=== PATIENT | female | born 1985 | race African-American/Black ===

== ENCOUNTER 2020-08-06 14:53 | Emergency (ER) | payer OTHER ==
[2020-08-06 15:25] VITALS: TEMP 98.5; BMI 34.3
[2020-08-06] MEDS ORDERED: SODIUM PHOSPHATE/NA BIPHOS 133 ML ENEMA PR ONE (16:53)
[2020-08-06 17:41] LABS: BASO % 0.5 % (0-2.0); EOS % 0.5 % (0-4.5); HEMATOCRIT 39.2 % (32.4-45.2); LYMPH % 32.4 % (8-40); MCH 30.4 pg (25.7-33.7); MCHC 33.1 g/dl (32.0-36.0); MEAN PLT VOLUME 8.8 fl (7.5-11.1); MONO % 6.5 % (3.8-10.2); NEUT % 60.1 % (42.8-82.8); PLATELET COUNT 184 K/MM3 (134-434); RBC 4.26 M/mm3 (3.60-5.2); RDW 13.5 % (11.6-15.6)
[2020-08-06 17:54] LABS: HCG,QUALITATIVE URINE Negative
[2020-08-06 18:14] LABS: POTASSIUM 4.2 mmol/L (3.5-5.1)
[2020-08-06 18:16] LABS: CALCIUM 9.7 mg/dL (8.5-10.1)
[2020-08-06 18:17] LABS: ALBUMIN 4.3 g/dl (3.4-5.0); BLOOD UREA NITROGEN 10.8 mg/dL (7-18)
[2020-08-06 18:21] LABS: EPI CELLS >36 /uL (0-25.1); HYALINE CASTS 1 /uL (0-3.1); PH,URINE 5.5 (5.0-8.0); URINE APPEARANCE CLOUDY; URINE BACTERIA 1663 /uL (0-1359); URINE BILIRUBIN NEGATIVE (NEGATIVE); URINE COLOR ORANGE; URINE GLUCOSE (UA) NEGATIVE (NEGATIVE); URINE KETONE TRACE (NEGATIVE); URINE LEUK ESTERASE 1+ (NEGATIVE); URINE NITRITE NEGATIVE (NEGATIVE); URINE PROTEIN 1+ (NEGATIVE); URINE RBC 398 /uL (0-23.9); URINE UROBILINOGEN 0.2 mg/dL (0.2-1.0); URINE WBC 202 /uL (0-25.8)
[2020-08-06 18:22] LABS: BILIRUBIN,TOTAL 0.4 mg/dL (0.2-1); TOT PROT 7.6 g/dl (6.4-8.2)
[2020-08-06] MEDS ORDERED: ACETAMINOPHEN 500 MG TABLET (FP) PO ONE (19:32)
[2020-08-06] MEDS ORDERED: ACETAMINOPHEN 325 MG TABLET (FP) ONE (19:37)
[2020-08-06 20:13] VITALS: BP 118/70; PULSE 75
== END 2020-08-06 20:12 | disposition home or self-care (01) ==
LOC: JER 14:53
DX: N30.01 Acute cystitis with hematuria (principal)
CPT/HCPCS: 36415; 74018-TC-FY; 74176-TC; 80053; 81003; 84703; 85025; 99284-25

== ENCOUNTER 2021-05-20 16:35 | Emergency (ER) | payer OTHER ==
[2021-05-20 16:42] VITALS: BP 130/78; PULSE 89; TEMP 98.2; BMI 34.3
[2021-05-20] MEDS ORDERED: ACETAMINOPHEN 500 MG TABLET (FP) PO ONE (17:56)
[2021-05-20] MEDS ORDERED: ACETAMINOPHEN 500 MG TABLET (FP) ONE (17:58)
== END 2021-05-20 20:40 | disposition home or self-care (01) ==
LOC: JERFT 16:35
DX: N63.10 Unspecified lump in the right breast, unspecified quadrant (principal)
CPT/HCPCS: 76642-TC-RT; 99284-25

== ENCOUNTER → 2021-06-04 | Day surgery (SDC) | payer OTHER | END | disposition home or self-care (01) | LOC: JRADUS-SUR 09:00 | PROVIDERS: ATTEND Surgery Surgical Oncology | PROC: 07953ZX Drainage of Right Axillary Lymphatic, Percutaneous Approach, Diagnostic (ICD-10-PCS; principal; 2021-06-04) | DX: D24.1 Benign neoplasm of right breast (principal); Z80.3 Family history of malignant neoplasm of breast | CPT/HCPCS: 19083; 19286; 77066-TC; 87899; A4648; G0279-TC ==

== ENCOUNTER 2021-06-16 22:53 | Inpatient (IN) | payer OTHER ==
[2021-06-17] MEDS ORDERED: morphine CARPU-JECT 4 MG/1 ML DISP.SYRIN IVPUSH ONE (00:46)
[2021-06-17] MEDS ORDERED: morphine SULFATE 4 MG/ML VIAL ONE (00:47)
[2021-06-17] MEDS ORDERED: SODIUM CHLORIDE 1,000 ML IV ONE (00:47)
[2021-06-17 01:14] LABS: BASO % 0.3 % (0-2.0); EOS % 0.3 % (0-4.5); HEMOGLOBIN 11.9 GM/dL (10.7-15.3); LYMPH % 12.6 % (8-40); MCH 29.6 pg (25.7-33.7); MCHC 33.1 g/dl (32.0-36.0); MEAN CELL VOLUME 89.2 fl (80-96); MEAN PLT VOLUME 7.5 fl (7.5-11.1); MONO % 9.6 % (3.8-10.2); NEUT % 77.2 % (42.8-82.8); PLATELET COUNT 269 10^3/uL (134-434); RBC 4.04 M/mm3 (3.60-5.2); RDW 13.3 % (11.6-15.6); WHITE BLOOD COUNT 14.4 K/mm3 (4.0-10.0)
[2021-06-17 01:26] LABS: CALCIUM 9.1 mg/dL (8.5-10.1)
[2021-06-17 01:27] LABS: ALBUMIN 3.2 g/dl (3.4-5.0); BLOOD UREA NITROGEN 7.6 mg/dL (7-18)
[2021-06-17 01:30] LABS: CREATININE 0.9 mg/dL (0.55-1.3)
[2021-06-17 01:31] LABS: BILIRUBIN,TOTAL 0.4 mg/dL (0.2-1)
[2021-06-17] MEDS ORDERED: VANCOMYCIN HCL 1,500 MG in DEXTROSE 5%-WATER - 500 ML IVPB ONE (01:39)
[2021-06-17 01:47] LABS: INR 1.55 (0.83-1.09); PROTHROMBIN TIME (PATIENT) 17.4 SEC (9.7-13.0)
[2021-06-17 01:50] LABS: ACTIVATED PTT 29.8 SECONDS (25.2-36.5)
[2021-06-17] MEDS ORDERED: VANCOMYCIN PREMIX 1.5 GM 1,500 MG/300 ML BAG IVPB ONE (02:44)
[2021-06-17] MEDS ORDERED: CLINDAMYCIN 900 MG PREMIX IVPB 900 MG/50 ML BAG IVPB ONE (04:15)
[2021-06-17] MEDS ORDERED: ONDANSETRON 4 MG/2 ML VIAL IVPUSH PRN (06:13)
[2021-06-17] MEDS: SODIUM CHLORIDE 1,000 ML IV SCH (07:26)
[2021-06-17] MEDS ORDERED: ONDANSETRON 4 MG/2 ML VIAL ONE (07:47)
[2021-06-17] MEDS ORDERED: PIPERACILLIN/TAZOB 3.375 GM 3.375 GM in DEXTROSE 5%-WATER - 50 ML IVPB SCH ×2 (08:30→18:00)
[2021-06-17] MEDS ORDERED: CLINDAMYCIN 600MG PREMIX IVPB 600 MG/50 ML BAG IVPB SCH (10:00)
[2021-06-17] MEDS ORDERED: PIPERACILLIN/TAZOBACTAM 3.375 GM VIAL IVPB ONE ×3 (11:55→17:34)
[2021-06-17] MEDS ORDERED: DEXTROSE 5%-WATER - 50 ML IVPB ONE ×2 (11:55→17:34)
[2021-06-17] MEDS: PIPERACILLIN/TAZOB 3.375 GM 3.375 GM in DEXTROSE 5%-WATER - 50 ML IVPB SCH ×2 (12:29→17:47)
[2021-06-17] MEDS: ENOXAPARIN NA (PORCINE) 40 MG/0.4 ML DISP.SYRIN SQ SCH (12:29)
[2021-06-17] MEDS ORDERED: ACETAMINOPHEN 325 MG TABLET (FP) PO PRN (15:21)
[2021-06-17] MEDS: DAPTOMYCIN 350 MG in SODIUM CHLORIDE 50 ML IVPB SCH (16:17)
[2021-06-18] MEDS ORDERED: PIPERACILLIN/TAZOBACTAM 3.375 GM VIAL IVPB ONE ×3 (01:24→17:30)
[2021-06-18] MEDS ORDERED: DEXTROSE 5%-WATER - 50 ML IVPB ONE ×3 (01:25→17:31)
[2021-06-18] MEDS: PIPERACILLIN/TAZOB 3.375 GM 3.375 GM in DEXTROSE 5%-WATER - 50 ML IVPB SCH ×3 (02:00→17:40)
[2021-06-18] MEDS ORDERED: ALBUTEROL SO4 HFA INHALER IH PRN ×2 (06:56→16:10)
[2021-06-18] MEDS: DAPTOMYCIN 350 MG in SODIUM CHLORIDE 50 ML IVPB SCH (10:06)
[2021-06-18] MEDS: SODIUM CHLORIDE 1,000 ML IV SCH ×2 (10:07→17:00)
[2021-06-18 12:42] LABS: BASO % 0.3 % (0-2.0); EOS % 0.3 % (0-4.5); HEMATOCRIT 32.7 % (32.4-45.2); HEMOGLOBIN 11.1 GM/dL (10.7-15.3); LYMPH % 13.4 % (8-40); MCH 30.4 pg (25.7-33.7); MEAN CELL VOLUME 89.2 fl (80-96); MEAN PLT VOLUME 7.5 fl (7.5-11.1); MONO % 10.5 % (3.8-10.2); NEUT % 75.5 % (42.8-82.8); PLATELET COUNT 233 10^3/uL (134-434); RBC 3.67 M/mm3 (3.60-5.2); RDW 13.4 % (11.6-15.6); WHITE BLOOD COUNT 10.9 K/mm3 (4.0-10.0)
[2021-06-18 13:12] LABS: CALCIUM 8.4 mg/dL (8.5-10.1)
[2021-06-18 13:14] LABS: BLOOD UREA NITROGEN 9.3 mg/dL (7-18)
[2021-06-18 13:18] LABS: BILIRUBIN,TOTAL 0.5 mg/dL (0.2-1)
[2021-06-18 13:20] LABS: ALBUMIN 2.8 g/dl (3.4-5.0)
[2021-06-18] MEDS ORDERED: PROMETHAZINE HCL 25 MG/1 ML VIAL IVPUSH PRN (14:20)
[2021-06-18] MEDS ORDERED: ONDANSETRON 4 MG/2 ML VIAL IVPUSH PRN (14:20)
[2021-06-18] MEDS ORDERED: LACTATED RINGERS SOLUTION 1,000 ML IV SCH (14:30)
[2021-06-18] MEDS ORDERED: SUCCINYLCHOLINE CHLORIDE 200 MG/10 ML SYRINGE ONE (14:33)
[2021-06-18] MEDS ORDERED: PROPOFOL 20 ML ONE ×2 (14:33)
[2021-06-18] MEDS ORDERED: MIDAZOLAM HCL 2 MG/2 ML SINGLE DOSE VIAL ONE (14:33)
[2021-06-18] MEDS ORDERED: DESFLURANE GAS 240 ML BOTTLE IH ONE (14:34)
[2021-06-18] MEDS ORDERED: HYDROmorphone HCl 2 MG/ML VIAL ONE (15:22)
[2021-06-18] MEDS ORDERED: MELATONIN 5 MG TABLETS PO PRN (21:55)
[2021-06-19] MEDS ORDERED: PIPERACILLIN/TAZOBACTAM 3.375 GM VIAL IVPB ONE ×3 (00:30→17:02)
[2021-06-19] MEDS ORDERED: DEXTROSE 5%-WATER - 50 ML IVPB ONE ×3 (00:31→17:02)
[2021-06-19] MEDS: PIPERACILLIN/TAZOB 3.375 GM 3.375 GM in DEXTROSE 5%-WATER - 50 ML IVPB SCH ×3 (01:13→17:15)
[2021-06-19] MEDS: SODIUM CHLORIDE 1,000 ML IV SCH (03:36)
[2021-06-19] MEDS: ACETAMINOPHEN 325 MG TABLET (FP) PO PRN ×2 (05:14→20:45)
[2021-06-19 08:54] LABS: HEMATOCRIT 30.5 % (32.4-45.2); HEMOGLOBIN 10.4 GM/dL (10.7-15.3); MCH 30.2 pg (25.7-33.7); MEAN PLT VOLUME 7.2 fl (7.5-11.1); PLATELET COUNT 226 10^3/uL (134-434); RBC 3.43 M/mm3 (3.60-5.2); RDW 13.2 % (11.6-15.6)
[2021-06-19 09:25] LABS: CALCIUM 8.4 mg/dL (8.5-10.1); MAGNESIUM 2.6 mg/dL (1.8-2.4)
[2021-06-19 09:26] LABS: ALBUMIN 2.7 g/dl (3.4-5.0)
[2021-06-19 09:28] LABS: PHOSPHOROUS 3.4 mg/dL (2.5-4.9)
[2021-06-19 09:30] LABS: BILIRUBIN,TOTAL 0.8 mg/dL (0.2-1); TOT PROT 5.8 g/dl (6.4-8.2)
[2021-06-19] MEDS: DAPTOMYCIN 350 MG in SODIUM CHLORIDE 50 ML IVPB SCH (10:45)
[2021-06-19] MEDS: ENOXAPARIN NA (PORCINE) 40 MG/0.4 ML DISP.SYRIN SQ SCH (10:45)
[2021-06-19] MEDS: POLYETHYLENE GLYCOL (HEALTHYLAX) 3350 17 GM PACKET PO SCH (10:45)
[2021-06-19] MEDS: DOCUSATE SODIUM 100 MG CAPSULE (FP) PO SCH (14:07)
[2021-06-19 14:49] VITALS: BMI 32.2
[2021-06-20] MEDS ORDERED: PIPERACILLIN/TAZOBACTAM 3.375 GM VIAL IVPB ONE ×3 (00:48→16:49)
[2021-06-20] MEDS ORDERED: DEXTROSE 5%-WATER - 50 ML IVPB ONE ×3 (00:48→16:49)
[2021-06-20 09:36] LABS: HEMATOCRIT 32.4 % (32.4-45.2); HEMOGLOBIN 10.7 GM/dL (10.7-15.3); MCH 29.8 pg (25.7-33.7); MCHC 33.2 g/dl (32.0-36.0); MEAN CELL VOLUME 89.8 fl (80-96); MEAN PLT VOLUME 7.5 fl (7.5-11.1); PLATELET COUNT 257 10^3/uL (134-434); RDW 12.9 % (11.6-15.6); WHITE BLOOD COUNT 10.5 K/mm3 (4.0-10.0)
[2021-06-20 09:52] LABS: ALBUMIN 2.7 g/dl (3.4-5.0); BLOOD UREA NITROGEN 8.1 mg/dL (7-18); CALCIUM 8.4 mg/dL (8.5-10.1); MAGNESIUM 2.7 mg/dL (1.8-2.4)
[2021-06-20 09:56] LABS: CREATININE 1.2 mg/dL (0.55-1.3); PHOSPHOROUS 3.2 mg/dL (2.5-4.9)
[2021-06-20 09:57] LABS: BILIRUBIN,TOTAL 0.4 mg/dL (0.2-1); TOT PROT 5.9 g/dl (6.4-8.2)
[2021-06-20] MEDS: ENOXAPARIN NA (PORCINE) 40 MG/0.4 ML DISP.SYRIN SQ SCH (10:31)
[2021-06-20] MEDS: PIPERACILLIN/TAZOB 3.375 GM 3.375 GM in DEXTROSE 5%-WATER - 50 ML IVPB SCH ×3 (10:31→17:39)
[2021-06-20] MEDS: DOCUSATE SODIUM 100 MG CAPSULE (FP) PO SCH (10:31)
[2021-06-20] MEDS: POLYETHYLENE GLYCOL (HEALTHYLAX) 3350 17 GM PACKET PO SCH (10:33)
[2021-06-20] MEDS: DAPTOMYCIN 350 MG in SODIUM CHLORIDE 50 ML IVPB SCH (11:17)
[2021-06-20] MEDS ORDERED: GLYCERIN 1 RECTAL SUPPOSITORY, ADULT PR ONE (17:48)
[2021-06-20] MEDS ORDERED: POLYETHYLENE GLYCOL (HEALTHYLAX) 3350 17 GM PACKET PO SCH (22:00)
[2021-06-21] MEDS ORDERED: DEXTROSE 5%-WATER - 50 ML IVPB ONE ×2 (00:43→09:21)
[2021-06-21] MEDS ORDERED: PIPERACILLIN/TAZOBACTAM 3.375 GM VIAL IVPB ONE ×2 (00:43→09:21)
[2021-06-21] MEDS: PIPERACILLIN/TAZOB 3.375 GM 3.375 GM in DEXTROSE 5%-WATER - 50 ML IVPB SCH (01:46)
[2021-06-21 10:36] LABS: HEMATOCRIT 33.3 % (32.4-45.2); HEMOGLOBIN 10.9 GM/dL (10.7-15.3); MCH 29.5 pg (25.7-33.7); MCHC 32.8 g/dl (32.0-36.0); MEAN CELL VOLUME 89.8 fl (80-96); MEAN PLT VOLUME 7.8 fl (7.5-11.1); PLATELET COUNT 295 10^3/uL (134-434); RBC 3.71 M/mm3 (3.60-5.2); RDW 13.3 % (11.6-15.6); WHITE BLOOD COUNT 10.9 K/mm3 (4.0-10.0)
[2021-06-21 10:56] LABS: ALBUMIN 2.9 g/dl (3.4-5.0); BLOOD UREA NITROGEN 8.7 mg/dL (7-18); CALCIUM 8.9 mg/dL (8.5-10.1); MAGNESIUM 2.7 mg/dL (1.8-2.4)
[2021-06-21 11:00] LABS: BILIRUBIN,TOTAL 0.3 mg/dL (0.2-1); CREATININE 1.2 mg/dL (0.55-1.3); PHOSPHOROUS 3.4 mg/dL (2.5-4.9); TOT PROT 6.3 g/dl (6.4-8.2)
[2021-06-21 16:07] VITALS: BP 110/64; PULSE 101; TEMP 98.7
== END 2021-06-21 12:23 | disposition home or self-care (01) | DRG 363 ==
LOC: JER 22:53 → JERBED 06-17 04:21 → J7W 06-17 09:00
PROVIDERS: ADMIT Hospitalist; ATTEND Internal Medicine
PROC: 0HBT0ZX Excision of Right Breast, Open Approach, Diagnostic (ICD-10-PCS; 2021-06-18)
PROC: 0HB5XZX Excision of Chest Skin, External Approach, Diagnostic (ICD-10-PCS; 2021-06-18)
PROC: 0H9T0ZX Drainage of Right Breast, Open Approach, Diagnostic (ICD-10-PCS; principal; 2021-06-18 15:00)
DX: N61.1 Abscess of the breast and nipple (principal); G43.909 Migraine, unspecified, not intractable, without status migrainosus; J45.909 Unspecified asthma, uncomplicated; D72.829 Elevated white blood cell count, unspecified
CPT/HCPCS: 36415; 71046-TC-FY; 76641-TC-RT; 80053; 83735; 84100; 84703; 85025; 85027; 85610; 85651; 85730; 86140; 86480; 86850; 86900; 86901; 87040; 87070; 87205; 88305-TC; 93005; 93010; 94760; 99285-25; C9803; J0878; U0003; U0005

== ENCOUNTER 2021-06-26 09:42 | Emergency (ER) | payer OTHER ==
[2021-06-26 10:05] VITALS: TEMP 97.8; BMI 30.9
[2021-06-26 12:10] LABS: BASO % 0.3 % (0-2.0); EOS % 0.2 % (0-4.5); HEMATOCRIT 35.5 % (32.4-45.2); HEMOGLOBIN 11.6 GM/dL (10.7-15.3); LYMPH % 15.3 % (8-40); MCH 29.2 pg (25.7-33.7); MCHC 32.8 g/dl (32.0-36.0); MEAN CELL VOLUME 89.2 fl (80-96); MEAN PLT VOLUME 8.2 fl (7.5-11.1); MONO % 8.3 % (3.8-10.2); NEUT % 75.9 % (42.8-82.8); PLATELET COUNT 320 10^3/uL (134-434); RBC 3.98 M/mm3 (3.60-5.2); RDW 13.1 % (11.6-15.6); WHITE BLOOD COUNT 8.8 K/mm3 (4.0-10.0)
[2021-06-26 12:16] LABS: INR 1.35 (0.83-1.09); PROTHROMBIN TIME (PATIENT) 15.6 SEC (9.7-13.0)
[2021-06-26 12:19] LABS: ACTIVATED PTT 30.2 SECONDS (25.2-36.5)
[2021-06-26 12:23] LABS: CHLORIDE 103 mmol/L (98-107); SODIUM 138 mmol/L (136-145)
[2021-06-26 12:26] LABS: ANION GAP 11 MMOL/L (8-16); BLOOD UREA NITROGEN 11.7 mg/dL (7-18); CO2 24 mmol/L (21-32); GLUCOSE,RANDOM 78 mg/dL (74-106); MAGNESIUM 2.6 mg/dL (1.8-2.4)
[2021-06-26 12:29] LABS: CREATININE 1.3 mg/dL (0.55-1.3); SGOT/AST 17 U/L (15-37)
[2021-06-26 12:30] LABS: BILIRUBIN,TOTAL 0.5 mg/dL (0.2-1); SGPT/ALT 28 U/L (13-61); TOT PROT 7.4 g/dl (6.4-8.2)
[2021-06-26 12:32] LABS: ALK PHOS 69 U/L (45-117)
[2021-06-26 12:42] LABS: ALBUMIN 3.5 g/dl (3.4-5.0)
[2021-06-26] MEDS ORDERED: ALBUTEROL SO4 HFA INHALER IH ONE ×2 (13:06→13:58)
[2021-06-26] MEDS ORDERED: ACETAMINOPHEN 325 MG TABLET (FP) PO ONE (13:07)
[2021-06-26] MEDS ORDERED: ACETAMINOPHEN 325 MG TABLET (FP) ONE (13:58)
[2021-06-26] MEDS ORDERED: DEXAMETHASONE 4 MG TABLET (FP) PO ONE (15:56)
[2021-06-26] MEDS ORDERED: guaiFENesin 200 MG/10 ML 10 ML UNIT-DOSE CUPS PO ONE (15:56)
[2021-06-26] MEDS ORDERED: guaiFENesin 200 MG/10 ML 10 ML UNIT-DOSE CUPS ONE (16:11)
[2021-06-26] MEDS ORDERED: DEXAMETHASONE SOD PHOSPHATE 10 MG/1 ML VIAL ONE (16:12)
[2021-06-26 16:19] VITALS: BP 102/78; PULSE 92
== END 2021-06-26 16:22 | disposition home or self-care (01) ==
LOC: JER 09:42
PROC: 3E0F7GC Introduction of Other Therapeutic Substance into Respiratory Tract, Via Natural or Artificial Opening (ICD-10-PCS; principal; 2021-06-26)
DX: R06.02 Shortness of breath (principal)
CPT/HCPCS: 36415; 71275-TC; 80053; 83735; 84484; 85025; 85610; 85730; 87804; 93005; 93010; 93970-TC; 93971; 99284-25; C9803; Q9967; U0003; U0005

== ENCOUNTER 2021-08-11 06:50 | Inpatient (IN) | payer OTHER ==
[2021-08-11] MEDS ORDERED: ACETAMINOPHEN 325 MG TABLET (FP) PO ONE (08:48)
[2021-08-11] MEDS ORDERED: ACETAMINOPHEN 325 MG TABLET (FP) ONE ×2 (08:59→09:19)
[2021-08-11 10:28] LABS: PH,URINE 6.5 (5.0-8.0); URINE APPEARANCE CLEAR; URINE BILIRUBIN NEGATIVE (NEGATIVE); URINE COLOR YELLOW; URINE GLUCOSE (UA) NEGATIVE (NEGATIVE); URINE KETONE NEGATIVE (NEGATIVE); URINE LEUK ESTERASE NEGATIVE (NEGATIVE); URINE NITRITE NEGATIVE (NEGATIVE); URINE PROTEIN NEGATIVE (NEGATIVE); URINE UROBILINOGEN 0.2 mg/dL (0.2-1.0)
[2021-08-11 10:30] LABS: HEMATOCRIT 34.2 % (32.4-45.2); HEMOGLOBIN 11.4 GM/dL (10.7-15.3); MCH 30.3 pg (25.7-33.7); MCHC 33.3 g/dl (32.0-36.0); PLATELET COUNT 186 10^3/uL (134-434); RBC 3.76 M/mm3 (3.60-5.2); RDW 17.1 % (11.6-15.6); WHITE BLOOD COUNT 14.4 K/mm3 (4.0-10.0)
[2021-08-11 10:31] LABS: HCG,QUALITATIVE URINE Negative
[2021-08-11 10:35] LABS: INR 0.97 (0.83-1.09); PROTHROMBIN TIME (PATIENT) 11.2 SEC (9.7-13.0)
[2021-08-11 10:38] LABS: ACTIVATED PTT 23.5 SECONDS (25.2-36.5)
[2021-08-11 10:45] LABS: CHLORIDE 104 mmol/L (98-107); SODIUM 138 mmol/L (136-145)
[2021-08-11 10:47] LABS: CALCIUM 8.7 mg/dL (8.5-10.1)
[2021-08-11 10:48] LABS: ALBUMIN 3.5 g/dl (3.4-5.0); ANION GAP 5 MMOL/L (8-16); BLOOD UREA NITROGEN 19.5 mg/dL (7-18); CO2 28 mmol/L (21-32); GLUCOSE,RANDOM 82 mg/dL (74-106); MAGNESIUM 2.1 mg/dL (1.8-2.4)
[2021-08-11 10:51] LABS: CREATININE 0.9 mg/dL (0.55-1.3); PHOSPHOROUS 4.2 mg/dL (2.5-4.9); SGOT/AST 9 U/L (15-37); SGPT/ALT 24 U/L (13-61)
[2021-08-11 10:52] LABS: BILIRUBIN,TOTAL 0.4 mg/dL (0.2-1); TOT PROT 6.5 g/dl (6.4-8.2)
[2021-08-11 10:54] LABS: ALK PHOS 39 U/L (45-117)
[2021-08-11 11:19] LABS: ERYTHROCYTE SEDIMENTATION RATE 3 mm/hr (0-20)
[2021-08-11 11:30] LABS: ANISOCYTOSIS 0; HELMET CELLS 0; HOWELL-JOLLY BODIES 0; MACROCYTOSIS 0; OVALOCYTE 0; ROULEAU 0; SICKELED CELLS 0; TARGET CELLS 0; TEAR DROP CELLS 0; TOXIC GRANULATION 0
[2021-08-11] MEDS ORDERED: ALPRAZolam 1 MG TABLET PO PRN (14:01)
[2021-08-11] MEDS ORDERED: ALPRAZolam 1 MG TABLET ONE (14:04)
[2021-08-11] MEDS: THIAMINE HCL 100 MG TABLET (FP) PO SCH (15:45)
[2021-08-11] MEDS ORDERED: THIAMINE HCL 100 MG TABLET (FP) ONE (17:11)
[2021-08-12 01:09] VITALS: BMI 32.5
[2021-08-12] MEDS: ACETAMINOPHEN 325 MG TABLET (FP) PO PRN ×2 (02:00→23:16)
[2021-08-12] MEDS: LIDOCAINE 5% TOPICAL PATCH TP SCH (09:49)
[2021-08-12] MEDS: THIAMINE HCL 100 MG TABLET (FP) PO SCH (09:49)
[2021-08-12] MEDS: LIDOCAINE PATCH REMOVAL MC SCH (21:42)
[2021-08-13] MEDS: LIDOCAINE 5% TOPICAL PATCH TP SCH (09:05)
[2021-08-13] MEDS: ENOXAPARIN NA (PORCINE) 40 MG/0.4 ML DISP.SYRIN SQ SCH (09:07)
[2021-08-13] MEDS: THIAMINE HCL 100 MG TABLET (FP) PO SCH (09:08)
[2021-08-13] MEDS: SODIUM CHLORIDE 1,000 ML IV SCH ×2 (13:05→21:16)
[2021-08-13] MEDS: ACETAMINOPHEN 325 MG TABLET (FP) PO PRN (13:06)
[2021-08-13 13:21] LABS: HEMATOCRIT 37.8 % (32.4-45.2); HEMOGLOBIN 12.3 GM/dL (10.7-15.3); MCHC 32.7 g/dl (32.0-36.0); MEAN CELL VOLUME 91.8 fl (80-96); MEAN PLT VOLUME 8.6 fl (7.5-11.1); PLATELET COUNT 177 10^3/uL (134-434); RBC 4.11 M/mm3 (3.60-5.2); RDW 17.7 % (11.6-15.6); WHITE BLOOD COUNT 10.6 K/mm3 (4.0-10.0)
[2021-08-13 13:32] LABS: CALCIUM 9.4 mg/dL (8.5-10.1)
[2021-08-13 13:33] LABS: ALBUMIN 3.7 g/dl (3.4-5.0); BLOOD UREA NITROGEN 16.7 mg/dL (7-18)
[2021-08-13 13:36] LABS: CREATININE 0.9 mg/dL (0.55-1.3); TOT PROT 6.8 g/dl (6.4-8.2)
[2021-08-13 13:38] LABS: BILIRUBIN,TOTAL 0.4 mg/dL (0.2-1)
[2021-08-13] MEDS: LIDOCAINE PATCH REMOVAL MC SCH (21:17)
[2021-08-14 08:53] LABS: BASO % 0.1 % (0-2.0); EOS % 0.2 % (0-4.5); HEMATOCRIT 36.1 % (32.4-45.2); HEMOGLOBIN 12.3 GM/dL (10.7-15.3); LYMPH % 12.1 % (8-40); MCH 31.4 pg (25.7-33.7); MCHC 34.1 g/dl (32.0-36.0); MEAN CELL VOLUME 92.1 fl (80-96); MEAN PLT VOLUME 8.2 fl (7.5-11.1); MONO % 8.6 % (3.8-10.2); PLATELET COUNT 153 10^3/uL (134-434); RBC 3.92 M/mm3 (3.60-5.2); RDW 17.5 % (11.6-15.6); WHITE BLOOD COUNT 8.9 K/mm3 (4.0-10.0)
[2021-08-14 09:02] LABS: ALBUMIN 3.6 g/dl (3.4-5.0); BLOOD UREA NITROGEN 15.3 mg/dL (7-18); CALCIUM 8.8 mg/dL (8.5-10.1)
[2021-08-14 09:05] LABS: BILIRUBIN,TOTAL 0.4 mg/dL (0.2-1); TOT PROT 6.6 g/dl (6.4-8.2)
[2021-08-14] MEDS: THIAMINE HCL 100 MG TABLET (FP) PO SCH (09:34)
[2021-08-14] MEDS: LIDOCAINE 5% TOPICAL PATCH TP SCH (09:34)
[2021-08-14] MEDS: ENOXAPARIN NA (PORCINE) 40 MG/0.4 ML DISP.SYRIN SQ SCH (09:35)
[2021-08-14 11:25] VITALS: PULSE 94
[2021-08-14 14:46] VITALS: BP 135/71; TEMP 98.4
== END 2021-08-14 15:54 | disposition home or self-care (01) | DRG 58 ==
LOC: JER 06:50 → JERBED 13:05 → J7W 08-12 00:50 → J6S 08-13 16:45
PROVIDERS: ADMIT Internal Medicine; ATTEND Internal Medicine
DX: G72.0 Drug-induced myopathy (principal); T38.0X5A Adverse effect of glucocorticoids and synthetic analogues, initial encounter; G43.909 Migraine, unspecified, not intractable, without status migrainosus; M79.10 Myalgia, unspecified site; J45.909 Unspecified asthma, uncomplicated; R29.898 Other symptoms and signs involving the musculoskeletal system
CPT/HCPCS: 36415; 70450-TC; 70551-TC; 71045-TC-FY; 72141-TC; 72146-TC; 72148-TC; 80053; 81003; 82550; 82607; 83735; 84100; 84443; 84484; 84703; 85025; 85027; 85610; 85651; 85730; 86140; 86618; 93005; 93010; 97116-GP; 97162-GP; 99291; C9803; U0003; U0005

== ENCOUNTER 2021-10-28 10:26 | Emergency (ER) | payer OTHER ==
[2021-10-28 10:51] VITALS: BMI 32.4
[2021-10-28] MEDS ORDERED: ACETAMINOPHEN 500 MG TABLET (FP) PO ONE (11:16)
[2021-10-28 13:43] VITALS: BP 130/91; PULSE 90; TEMP 98.2
== END 2021-10-28 13:46 | disposition home or self-care (01) ==
LOC: JER 10:26
DX: J11.1 Influenza due to unidentified influenza virus with other respiratory manifestations (principal)
CPT/HCPCS: 0241U-QW; 71046-TC-FY; 87807; 99284-25; C9803-CS; U0003; U0005